=== PATIENT | male | born 1965 | race Hispanic/Latino ===

== ENCOUNTER 2019-10-06 07:38 | Outpatient (CLI) | payer OTHER ==
--- NOTE | 2019-10-06 09:00 | ULT ---
Exam: Hepatic Doppler HISTORY: Cirrhosis. COMPARISON: None. TECHNIQUE: Grayscale, color flow, Doppler imaging spectral wave analysis performed of the liver. FINDINGS: Visualized aorta and IVC are patent. The head and proximal pancreatic body have a normal echotexture. Liver: Nodularity of the hepatic margin. Increased echogenicity in the liver. Limited evaluation for hepatic masses and intrahepatic biliary dilatation. Right hepatic lobe measures 16.3 cm. Right kidney: No hydronephrosis. Spleen has a normal echotexture, measuring 15.6 cm in maximum dimension. Hepatic Doppler: There is patency and appropriate directional flow in the left portal vein, main port al vein, right portal vein, left hepatic vein, middle hepatic vein, right hepatic vein and hepatic artery. There is patency and appropriate directional flow in the splenic vein and artery. IMPRESSION: 1. Cirrhotic changes of the liver. 2. Splenomegaly. 3. Normal hepatic Doppler: Transcribed Date/Time: 10/06/2019 9:11 AM
== END 2019-10-06 07:39 | disposition home or self-care (01) ==
LOC: SCSULT 07:38
PROVIDERS: ATTEND Physician Assistant Medical
DX: K74.60 Unspecified cirrhosis of liver (principal); R16.1 Splenomegaly, not elsewhere classified
CPT/HCPCS: 76705